=== PATIENT | female | born 1970 | race Two or more races ===

== ENCOUNTER 2016-11-08 06:00 | Inpatient (IN) | payer OTHER ==
[~2016-11-08 06:00] MED LIST: CHLORHEXIDINE GLUC HIBICLENS 118 ML BTL TP ONE; ceFAZolin 2 GM/DEXTROSE 100 ML IV ONE
[2016-11-08] MEDS ORDERED: LIDOCAINE 1% 5 ML SDV ONE (06:39)
[2016-11-08] MEDS ORDERED: THROMBIN (RECOMBINANT) 5,000 UNIT VIAL TP ONE (06:39)
[2016-11-08] MEDS ORDERED: BACITRACIN 50,000 UNITS/10 ML SYR IRR ONE (06:40)
[2016-11-08] MEDS ORDERED: BUPIVACAINE/EPI 0.25% 30 ML SDV ONE (06:40)
[2016-11-08] MEDS ORDERED: ceFAZolin 2 GM in D5W 100 ML IV ONE (07:00)
[2016-11-08] MEDS ORDERED: LIDOCAINE 1% 5 ML SDV ID PRN (07:05)
[2016-11-08] MEDS ORDERED: LR 1,000 ML IV ONE (07:05)
[2016-11-08] MEDS ORDERED: MIDAZOLAM 2 MG/2 ML VIAL ONE (07:19)
[2016-11-08] MEDS ORDERED: REMIFENTANIL HCL 1 MG VIAL ONE ×2 (07:22→09:22)
[2016-11-08] MEDS ORDERED: PROPOFOL/EMULSION 500 MG/50 ML BOTTLE IV ONE ×2 (07:22→09:25)
[2016-11-08] MEDS ORDERED: fentaNYL 250 MCG/5 ML INJ ONE (07:22)
[2016-11-08] MEDS ORDERED: DEXAMETHASONE 4 MG/ML VIAL ONE ×2 (07:38)
[2016-11-08] MEDS ORDERED: ROCURONIUM 50 MG/5 ML VIAL ONE (07:38)
[2016-11-08] MEDS ORDERED: DIAZEPAM 10 MG/2 ML SYR IVP PRN (10:55)
[2016-11-08] MEDS ORDERED: ONDANSETRON 4 MG/2 ML VIAL IVP PRN (10:55)
[2016-11-08] MEDS ORDERED: diphenhydrAMINE 25 MG CAP PO PRN (10:55)
[2016-11-08] MEDS ORDERED: LACTULOSE 20 GM/30 ML UDCUP PO PRN (10:55)
[2016-11-08] MEDS ORDERED: DIAZEPAM 5 MG TAB PO PRN (10:55)
[2016-11-08] MEDS ORDERED: BISACODYL 10 MG SUPP PR PRN (10:55)
[2016-11-08] MEDS ORDERED: MAGNESIUM HYDROXIDE 30 ML UDCUP PO PRN (10:55)
[2016-11-08] MEDS ORDERED: ONDANSETRON DISINTEGRATING 4 MG TAB PO PRN (10:55)
[2016-11-08] MEDS ORDERED: ACETAMINOPHEN 325 MG TAB PO PRN (10:55)
[2016-11-08] MEDS ORDERED: POLYETHYLENE GLYCOL 3350 17 GM PKT PO PRN (10:55)
[2016-11-08] MEDS ORDERED: NS W/ 20 KCl/L 1,000 ML IV SCH (11:00)
[2016-11-08] MEDS ORDERED: DIAZEPAM 10 MG/2 ML SYR ONE (11:15)
[2016-11-08] MEDS ORDERED: fentaNYL 100 MCG/2 ML INJ ONE (11:15)
--- NOTE | 2016-11-08 12:22 | DX ---
Intraoperative Fluoroscopy for Cervical Spine Surgery History: Cervical spine surgery. Fluoroscopy time 13.4 seconds. Cumulative dose 2.48 mGy. Findings: Single fluoroscopic image demonstrates postsurgical changes of anterior fusion of C5-C7. ET tube is seen in place. Impression: Intraoperative fluoroscopy for cervical spine surgery.
--- NOTE | 2016-11-08 12:34 | POSTOPPROG ---
Post Op Note Date of Operation: 11/08/16 Surgeon: Ria Nascimento Molecular Geneticist: Corry Rodriguez Anesthesia: GET(General Endotracheal) Pre-op Diagnosis: Cervical Radiculopathy Post-op Diagnosis: Same Procedure: ACDF C5/6, 6/7 Inf/Abcess present in the surg proc area at time of surgery?: No Depth: Organ Space EBL: 50-100 Complications: None SOAP Progress Note Assessment/Plan: Assessment: Plan: S: Patient with expected incisional site and posterior shoulder pain. O: AFVSS, NAD CN II-XII grossly intact BUE/BLE 5/5= except right tricep- 4+/5 Sensation intact to lt touch incision c/d/i-dressed- soft collar in place A: 46 yo female s/p ACDC C5/6, 6/7 -orders in -postop xrays pending -optimize pain management -PT/OT/INDUCTION BRAZER -Advance diet as tolerated -Will be fit for hard cervical collar later today -Discharge plan- tomorrow Please call with any new or worsening symptoms 11/08/16 12:32 Objective: Vital Signs Temp Pulse Resp BP Pulse Ox 36.5 C 102 H 16 115/88 H 94 11/08/16 12:22 11/08/16 12:22 11/08/16 12:22 11/08/16 12:22 11/08/16 12:22 11/07/16 11/08/16 11/09/16 05:59 05:59 05:59 Intake Total 1600 Output Total 75 Balance 1525
[2016-11-08] MEDS: oxyCODONE IR 5 MG TAB PO PRN ×2 (13:16→21:03)
--- NOTE | 2016-11-08 14:02 | GOP ---
[f rep st] OPERATIVE REPORT DATE OF OPERATION: 11/08/2016 SURGEON: Dea Nascimento MD SHOW HORSE DRIVER: DOLORES Petit PREOPERATIVE DIAGNOSIS: Cervical spondylosis with cervical disk herniation C5-6, C6-7, left-sided bi as at C5-6, right-sided bias at C6-7. POSTOPERATIVE DIAGNOSIS: Cervical spondylosis with cervical disk herniation C5-6, C6-7, left-sided b ias at C5-6, right-sided bias at C6-7. PROCEDURE PERFORMED: Anterior cervical diskectomy with decompression and arthrodesis, C5-6, C6-7 ([phone]), anterior cervical instrumentation, C5, C6, C7 ([id number]), placement of biomechanical interv ertebral device at the patient's own expense, C5-6, C6-7 ([id number] [phone]), microscope, same incision bone g raft harvest. FINDINGS: ESTIMATED BLOOD LOSS: 75 cc. INDICATIONS: The patient is a 46-year-old with terrible right and left-sided radiculopathy, right gr eater than left, who had an MRI, which demonstrated a large soft disk herniation on the right at C6-7 , and a left spondylosis, and central and left paracentral disk protrusion at C5-6, with compression of the nerve root entry zone on the left at C5-6 and on the right at C6-7. She desired to have surge ry. Her insurance company was [employer], and they did not, for some reason, approve FDA-approved devices at C5-6, C6-7, and for some reason, [employer] considers these experimental. We use a combination of jacob tomic PEEK combined with bony autograft harvested locally, and have had excellent success over the 12 years using this technique, and [employer] did not approve it, despite it being FDA-approved. The santo ugarte and her family discussed this, and they wanted to proceed with anatomic PEEK instead of bone a llograft, and it was our position that, in fact, this was advantageous for her, and they were willing to pay out of pocket for it. The risk of pseudoarthrosis, nevertheless, remains real. She understo od this risk, as well as the risk of adjacent segment disease, nerve injury, spinal fluid leak, enid nued symptoms, screw and hardware failure and malposition, as well as esophageal injury, carotid inju ry, recurrent laryngeal nerve injury, dysphagia, and she accepted these risks and wanted to proceed. DESCRIPTION OF PROCEDURE: The patient was taken to the operating room, placed in supine position. G eneral anesthesia was begun. A midline shoulder roll was placed. The arms were tucked on the side o f the bed at the patient's side, and care was taken to pad all points of contact. Head was put on e [place] horseshoe head control clerk. She was sterilely prepped and draped. We made a left-sided transv erse incision in the dominant neck crease on the left-hand side. The subcutaneous tissue was dissect ed using Bovie cautery through the platysma, and then we used a combination of sharp and blunt dissec tion medial to the sternocleidomastoid and lateral to the strap muscles, down to the prevertebral spa ce. A localizing x-ray was taken. We dissected the longus colli muscles off the spine at C5-6, C6-7 , and placed distraction pins at C6 and C7, introduced the operating microscope, and under the scope we completely removed the C6-7 disk. We then drilled and harvested subchondral bone for autologous g rafting purposes and chose a 7 x 16 x 14 mm anatomic PEEK and packed it with bony autograft. It was completely stuffed full of bony autograft. We then opened the posterior longitudinal ligament, decom pressed the thecal sac, and the neural foramina bilaterally. There was a large central and right par acentral, as well as foraminal disk fragment on the right at C6-7, and a nice decompression of the C7 root was performed. We then moved our distraction pin and did the same thing at C5-6. We removed t he disk and the cartilaginous endplates. We drilled and harvested subchondral bone to create a bony autograft for bone grafting. We then opened the posterior longitudinal ligament, decompressed the th ecal sac and the neural foramen bilaterally. The exiting C6 nerve roots were decompressed. We then took anatomic PEEK and again chose a 7 x 16 x 14 mm device, which was larger than the bony allograft that was available. We packed it with autologously harvested bone dust, inserted it at C5-6, and a n ice fit was obtained. We then shot an x-ray, confirming the devices in the disk spaces, and then rem lucrecia some of the ventral osteophytes at C5-6, and then chose a 39 mm ZEVO plate. We increased the lo rdosis on the plate, and placed a single screw at 5, a single screw at C7. The hardware appeared to be well seated within the vertebral bodies without violation of the surrounding disk spaces or the sp inal canal. We then placed the remaining screws, locked them according to company specification, rebekah t a final x-ray, and all the hardware was in excellent position. We then achieved meticulous hemosta sis, placed some Marcaine with epinephrine in the wound, and then closed the incision in multiple lay ers using Vicryl sutures. Steri-Strips were applied to the skin. The patient was reversed from anes thesia, extubated, and transferred to the recovery room in stable condition. There were no complicat ions. COMPLICATIONS: None. /[id number]/MODL
[2016-11-08] MEDS: METHOCARBAMOL 750 MG TAB PO PRN (15:47)
[2016-11-08] MEDS: SENNOSIDES/DOCUSATE SODIUM TAB PO SCH (21:03)
[2016-11-09] MEDS: METHOCARBAMOL 750 MG TAB PO PRN ×2 (08:17→14:32)
[2016-11-09] MEDS: SENNOSIDES/DOCUSATE SODIUM TAB PO SCH (08:17)
--- NOTE | 2016-11-09 10:57 | NEUSURGPN ---
Date of Surgery: 11/08/16 Post Op Day: 1 Assessment/Plan: 46 yo female POD #1 s/p C5-7 ACDF Doing ok this AM. Swallowing ok No new neurologic changes Plan: Hard collar cervical xrays today PT/OT/ST as tolerated DC planning Subjective: Sleeping, wakes easily. denies any new problems, pain controlled Swallowing "ok" Objective: Neuro: DELGADO, Sens + LT equal strength in arms/hand sens +LT Hard collar in place Dressing : CDI Urinary Catheter in Place: No Neurosurgery Physical Exam - Vitals, I&O, Labs I and O 11/08/16 11/09/16 11/10/16 05:59 05:59 05:59 Intake Total 1999 Output Total 3975 1000 Balance -1974 -999 Weight 104.326 kg Intake: Oral (ml) 400 IV Intake (ml) 1600 Output: Urine (ml) 3900 1000 Toilet 3900 1000 Estimated Blood Loss (ml) 75 Other: Intake Quantity Yes Sufficient Number of Voids Toilet 1 1 Vital Signs Temp Pulse Resp BP Pulse Ox 36.6 C 90 15 120/71 93 11/09/16 07:58 11/09/16 07:58 11/09/16 07:58 11/09/16 07:58 11/09/16 07:58 ICD10 Worksheet Patient Problems: Problems Problem Status Diagnosed Cervical stenosis of spine Acute - ICD10 Problem Qualifiers (1) Cervical stenosis of spine
--- NOTE | 2016-11-09 12:09 | DX ---
Cervical spine upright AP and lateral 1114 hours. History: Follow-up fusion. Findings: Comparison to November 07, 2016. Anterior cervical fusion plate is present from C5 through C7 with disk replacement material in good p osition and alignment. The remainder of the intervertebral disk spaces are normal. Precervical soft t issue swelling is present as expected postoperatively. The intervertebral disk at C2-C3, C3-C4, and C 4-C5 are normal in appearance. Impression: 1. Good alignment of anterior cervical fusion plate and disk replacement material from C5 through C7. 2. Precervical soft tissue swelling is present as expected postoperatively.
[2016-11-09 12:24] VITALS: BP 114/66; PULSE 74; RESP 14; TEMP 98.5; O2SAT 89
[2016-11-09] MEDS: oxyCODONE IR 5 MG TAB PO PRN (16:10)
== END 2016-11-09 16:22 | disposition home or self-care (01) | DRG 473 ==
LOC: F3N 06:00
PROVIDERS: ADMIT Neurological Surgery; ATTEND Neurological Surgery
PROC: 0RG20A0 Fusion of 2 or more Cervical Vertebral Joints with Interbody Fusion Device, Anterior Approach, Anterior Column, Open Approach (ICD-10-PCS; principal; 2016-11-08 07:30)
PROC: 01N10ZZ Release Cervical Nerve, Open Approach (ICD-10-PCS; principal; 2016-11-08 07:30)
PROC: 0PB30ZZ Excision of Cervical Vertebra, Open Approach (ICD-10-PCS; principal; 2016-11-08 07:30)
DX: M50.122 Cervical disc disorder at C5-C6 level with radiculopathy (principal); M50.123 Cervical disc disorder at C6-C7 level with radiculopathy; M48.02 Spinal stenosis, cervical region; M47.892 Other spondylosis, cervical region
CPT/HCPCS: 92526-GN; 92610-GN; 97161-GP; 97165-GO; C1713; J0690; J1100; J2250; J2704; J3010